=== PATIENT | male | born 1950 | race Hispanic/Latino ===

== ENCOUNTER 2018-08-26 10:08 | Inpatient (IN) | payer MEDICARE, OTHER ==
[2018-08-26 10:47] LABS: Basophils # (Auto) 0.2 K/mm3 (0.0-0.1); Basophils % (Auto) 1.5 % (0.0-1.8); Eosinophils # (Auto) 0.1 K/mm3 (0.0-0.4); Eosinophils % (Auto) 0.7 % (0.0-4.3); Hematocrit 45.1 % (35.5-45.6); Hemoglobin 15.4 gm/dl (11.8-15.2); Lymphocytes # (Auto) 2.3 K/mm3 (1.2-5.4); Lymphocytes % (Auto) 21.9 % (13.4-35.0); Mean Corpuscular HGB Conc 34 % (32-34); Mean Corpuscular Volume 93 fl (84-94); Monocytes # (Auto) 0.6 K/mm3 (0.0-0.8); Monocytes % (Auto) 5.9 % (0.0-7.3); Platelet Count 292 K/mm3 (140-440); Red Blood Count 4.85 M/mm3 (3.65-5.03); Red Cell Distribution Width 13.8 % (13.2-15.2)
[2018-08-26 11:10] LABS: BUN/Creatinine Ratio 18; Blood Urea Nitrogen 14 mg/dL (9-20); Calcium 9.2 mg/dL (8.4-10.2); Hemolysis Index 10
--- NOTE | 2018-08-26 11:17 | Emergency Department Report ---
HPI - General Chief Complaint: Syncope Time Seen by Provider: 08/26/18 10:33 - HPI HPI: 67-year-old male presents to the emergency department from work after he had a syncopal episode just prior to arrival. 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 He did hit his head but denies any laceration. He is currently awake and alert. He had an EKG in triage that shows A-fib which appears to be new onset. He has a pmhx of COPD, not O2 dependent. He is a tobacco smoker but denies illicit drug use. 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 he denies any fever, CP, SOB, lower extremity swelling. The patient says that he had something like this many years ago but never was evaluated for it. He has a primary care physician through the [facility]. He was brought in by a coworker. ED Past Medical Hx - Past Medical History Previous Medical History?: Yes Hx COPD: Yes - Surgical History Past Surgical History?: No - Social History Smoking Status: Current Every Day Smoker Substance Use Type: None - Medications Home Medications: Home Medications Medication Instructions Recorded Confirmed Last Taken Type Propranolol [Inderal] 40 mg PO BID 08/26/18 08/26/18 08/26/18 History amLODIPine [Norvasc] 10 mg PO DAILY 08/26/18 08/26/18 08/26/18 History ED Review of Systems ROS: Stated complaint: FELL AT WORK Other details as noted in HPI Comment: All other systems reviewed and negative Constitutional: denies: chills, fever Eyes: vision change (blurry vision, now resolved). denies: eye pain ENT: denies: ear pain, throat pain Respiratory: denies: cough, shortness of breath Cardiovascular: syncope. denies: chest pain Gastrointestinal: denies: abdominal pain, vomiting Genitourinary: denies: dysuria, frequency Musculoskeletal: denies: back pain, arthralgia Skin: denies: rash, lesions Neurological: headache, other (dizziness) Physical Exam - Physical Exam Vital Signs: Vital Signs 08/26/18 10:24 Temperature 97.9 F Pulse Rate 57 L Respiratory 16 Rate Blood Pressure 115/74 O2 Sat by Pulse 100 Oximetry Physical Exam: GENERAL: The patient is well-developed well-nourished. HENT: Normocephalic. Atraumatic. Patient has moist mucous membranes. EYES: Extraocular motions are intact. Pupils equal reactive to light bilaterally. NECK: Supple. Trachea is midline. CHEST/LUNGS: Clear to auscultation. There is no respiratory distress noted. HEART/CARDIOVASCULAR: Irregular.. There is no tachycardia. There is no murmur. ABDOMEN: Abdomen is soft, nontender. Patient has normal bowel sounds. There is no abdominal distention. SKIN: Skin is warm and dry. NEURO: The patient is awake, alert, and oriented. The patient is cooperative. The patient has no focal neurologic deficits. The patient has normal speech. CN II - XII grossly intact. MUSCULOSKELETAL: There is no tenderness or deformity. There is no evidence of acute injury. ED Course Vital Signs 08/26/18 10:24 Temperature 97.9 F Pulse Rate 57 L Respiratory 16 Rate Blood Pressure 115/74 O2 Sat by Pulse 100 Oximetry ED Medical Decision Making - Lab Data Result diagrams: 08/26/18 10:26 08/26/18 10:26 - EKG Data -: EKG Interpreted by Me - EKG Data When compared to previous EKG there are: previous EKG unavailable Interpretation: other (atrial fibrillation, rate of 101 bpm, normal axis, normal intervals) - Radiology Data Radiology results: report reviewed, image reviewed interpreted by me: Chest x-ray shows some hyperinflation of the lungs. No obvious pneumonia or pleural effusions. No pneumothorax. CTA CHEST WITH CONTRAST INDICATION : Syncope, new onset A-fib. TECHNIQUE: Axial imaging performed through the chest, with contrast bolus timing set to maximize opacification of the pulmonary arteries. Sagittal and coronal reformatted images. 3-plane MIP reformatted images were obtained. All CT scans at this location are performed using CT dose reduction for ALARA by means of automated exposure control. 100 mL of intravenous contrast administered. COMPARISON: None FINDINGS: Bolus: Contrast bolus timing is adequate. PTE: No filling defect is present to suggest PTE. Mediastinum: Heart and great vessels appear normal. No pathologic mediastinal adenopathy. Lungs: Minimal centrilobular and paraseptal emphysematous changes are identified at the lung apices. No evidence for infiltrate, pleural effusion or pneumothorax. No interstitial lung disease. Upper abdomen: 6 cm cyst at the superior pole of the right kidney. Bones: Intact. Mild discogenic disease throughout the lower thoracic spine is noted. IMPRESSION: Negative for PTE. Clear lungs. Minimal emphysematous changes. CT head without contrast Coronal history: Syncope, trauma FINDINGS: No previous exams available for comparison. There appears be mild cerebral white matter disease most consistent with age-appropriate microvascular angiopathy. There is mild cerebral atrophy. The ventricular system is correspondingly appropriate in size and configuration. There is no clear CT evidence of acute intracranial hemorrhage or significant mass effect. The visualized paranasal sinuses are clear. All CT scans at this location are performed using the CT dose reduction for Last Size by means of automated exposure control. IMPRESSION: There is no CT evidence of acute intracranial process. - Medical Decision Making This patient presents to the emergency department after having a syncopal episode at work. Through triage, the patient was found to be in atrial fibrillation which is new onset. A CT scan of the head did not show any bleed, shift, mass, ischemia, or any other acute process. CT angiography of the chest also did not show any pulmonary embolism, dissection, aneurysm, or any other acute process. Patient's labs were mostly unremarkable. He was placed on a heparin drip and will be hospital for further evaluation and treatment. Patient was accepted for admission by the hospitalist, Dr. Lyon. - Differential Diagnosis PE, CVA, TIA, hyperthyroidism Critical Care Time: Yes Critical care time in (mins) excluding proc time.: 35 Critical care attestation.: If time is entered above; I have spent that time in minutes in the direct care of this critically ill patient, excluding procedure time. Critical care time was spent on this patient and during his initial evaluation, multiple re- evaluations, ordering and interpretation of labs and imaging, ordering of the heparin bolus and drip. Critical Care Time: 35 minutes ED Disposition Clinical Impression: New onset atrial fibrillation, Syncope and collapse COPD (chronic obstructive pulmonary disease) Qualifiers: COPD type: chronic bronchitis Chronic bronchitis type: simple Qualified Code(s): J41.0 - Simple chronic bronchitis Disposition: OP ADMIT IP TO THIS HOSP Is pt being admited?: Yes Condition: Fair Time of Disposition: 18:44
--- NOTE | 2018-08-26 12:25 | XRay Report ---
CHEST 2 VIEWS INDICATION: Syncopal episode at work today, loss of consciousness. COMPARISON: None FINDINGS: Support devices: None. Heart: Within normal limits. Lungs/pleura: No acute air space or interstitial disease. The lungs are hyperinflated suggesting und erlying emphysematous changes. No pleural effusion or pneumothorax. Pulmonary vessels are within norm al limits. Additional findings: None. IMPRESSION: No acute cardiopulmonary process. Mild COPD. Signer Name: Jesus Merchant Jr, MD Signed: 08/26/2018 12:21 PM Workstation Name: [id number]
[2018-08-26] MEDS ORDERED: NACL 0.9% 1000 ML 1,000 ML IV ONE (12:56)
--- NOTE | 2018-08-26 13:35 | Cat Scan Report ---
CTA CHEST WITH CONTRAST INDICATION : Syncope, new onset A-fib. TECHNIQUE: Axial imaging performed through the chest, with contrast bolus timing set to maximize opa cification of the pulmonary arteries. Sagittal and coronal reformatted images. 3-plane MIP reformatte d images were obtained. All CT scans at this location are performed using CT dose reduction for ALAR A by means of automated exposure control. 100 mL of intravenous contrast administered. COMPARISON: None FINDINGS: Bolus: Contrast bolus timing is adequate. PTE: No filling defect is present to suggest PTE. Mediastinum: Heart and great vessels appear normal. No pathologic mediastinal adenopathy. Lungs: Minimal centrilobular and paraseptal emphysematous changes are identified at the lung apices. No evidence for infiltrate, pleural effusion or pneumothorax. No interstitial lung disease. Upper abdomen: 6 cm cyst at the superior pole of the right kidney. Bones: Intact. Mild discogenic disease throughout the lower thoracic spine is noted. IMPRESSION: Negative for PTE. Clear lungs. Minimal emphysematous changes. Signer Name: Jesus Merchant Jr, MD Signed: 08/26/2018 1:30 PM Workstation Name: [id number]
--- NOTE | 2018-08-26 13:36 | Cat Scan Report ---
CT head without contrast Coronal history: Syncope, trauma FINDINGS: No previous exams available for comparison. There appears be mild cerebral white matter dis ease most consistent with age-appropriate microvascular angiopathy. There is mild cerebral atrophy. T he ventricular system is correspondingly appropriate in size and configuration. There is no clear CT evidence of acute intracranial hemorrhage or significant mass effect. The visualized paranasal sinuse s are clear. All CT scans at this location are performed using the CT dose reduction for ALARA by [facility] yoko of automated exposure control. IMPRESSION: There is no CT evidence of acute intracranial process. Signer Name: Madi Fleming MD Signed: 08/26/2018 1:32 PM Workstation Name: [id number]
[2018-08-26] MEDS ORDERED: HEPARIN 10,000 UNITS/10 ML IV ONE (13:37)
--- NOTE | 2018-08-26 13:42 | History and Physical Report ---
History of Present Illness Chief complaint: I got dizzy and passed out History of present illness: 67 YO Male with Nicotine Dependence, COPD presents to ED for evaluation. Pt states that he was in his usual state of health and was working today. 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 Pt transported to [facility] via private vehicle. Pt seen and evaluated in ED. Pt acknowledges shortness of breath, decreased exercise tolerance, dypsnea on exertion, dypsnea at rest. Pt found to have new onset Atrial Fib, as well as symptoms consistent with Diastolic CHF. 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 Pt denies fever, chills, CP, lower extremity swelling, individual/family history of DVT/PE/Bleeding/Blood Clotting Disorder. No prior admission for review. All listed mediation reconc iled at time of admission. CHADS 2 Vasc Score:1. Cardiology consulted in ED. Past History Past Medical History: COPD Past Surgical History: No surgical history, Other (reviewed) Social history: , lives with family, smoking Family history: no significant family history (reviewed) Medications and Allergies Allergies Allergy/AdvReac Type Severity Reaction Status Date / Time No Known Allergies Allergy Verified 08/26/18 10:16 Home Medications Medication Instructions Recorded Confirmed Last Taken Type Propranolol [Inderal] 40 mg PO BID 08/26/18 08/26/18 08/26/18 History amLODIPine [Norvasc] 10 mg PO DAILY 08/26/18 08/26/18 08/26/18 History Active Meds: Active Medications Sodium Chloride (Nacl 0.9% 1000 Ml) 1,000 mls @ 999 mls/hr IV BOLUS ONE Stop: 08/26/18 13:56 Last Admin: 08/26/18 13:19 Dose: 999 mls/hr Documented by: Heparin Sodium/Sodium Chloride (Heparin/ 0.45% Nacl-25,000 Unit/500 Ml) 25,000 unit in 500 mls @ 21.773 mls/hr IV TITR EDSON; Protocol Review of Systems Constitutional: no weight loss, no weight gain, no fever, no chills Ears, nose, mouth and throat: no ear pain, no ear discharge, no nose pain, no nasal congestion Cardiovascular: palpitations, syncope, shortness of breath, dyspnea on exertion, decreased exercise tolerance, no chest pain, no orthopnea, no edema, no lightheadedness Respiratory: no cough, no cough with sputum, no excessive sputum Gastrointestinal: no nausea, no vomiting, no diarrhea, no constipation Genitourinary Male: no hematuria, no flank pain, no discharge, no urinary frequency, no urinary hesitancy Rectal: no pain, no incontinence, no bleeding Musculoskeletal: no neck stiffness, no neck pain, no arm numbness/tingling, no shooting leg pain, no leg numbness/tingling Integumentary: no rash, no pruritis, no redness, no sores, no wounds Neurological: no head injury, no transient paralysis, no paralysis, no weakness, no parathesias, no numbness, no tingling Psychiatric: no anxiety, no memory loss, no change in sleep habits, no sleep disturbances, no insomnia, no hypersomnia Endocrine: no cold intolerance, no heat intolerance, no polyphagia, no excessive thirst, no polydipsia, no polyuria, no excessive sweating, no flushing Hematologic/Lymphatic: no easy bruising, no easy bleeding, no lymphadenopathy, no lymphedema Allergic/Immunologic: no urticaria, no allergic rhinitis, no persistent infections, no anaphylaxis Exam - Constitutional Vitals: Temp Pulse Resp BP Pulse Ox 97.9 F 79 17 98/74 86 08/26/18 10:24 08/26/18 12:00 08/26/18 12:00 08/26/18 12:00 08/26/18 12:00 General appearance: Present: no acute distress - EENT Eyes: Present: PERRL ENT: hearing intact, clear oral mucosa - Neck Neck: Present: supple, normal ROM - Respiratory Respiratory effort: normal Respiratory: bilateral: CTA - Cardiovascular Rhythm: irregularly irregular Heart Sounds: Present: S1 & S2. Absent: rub, click - Extremities Extremities: pulses symmetrical, No edema Peripheral Pulses: within normal limits - Abdominal General gastrointestinal: Present: soft, non-tender, non-distended, normal bowel sounds Male genitourinary: Present: normal - Integumentary Integumentary: Present: clear, warm, dry - Musculoskeletal Musculoskeletal: gait normal, strength equal bilaterally - Psychiatric Psychiatric: appropriate mood/affect, intact judgment & insight - Neurologic Neurologic: CNII-XII intact, moves all extremities Results - Labs CBC & Chem 7: 08/26/18 10:26 08/26/18 10:26 Labs: Abnormal lab results 08/26/18 08/26/18 08/26/18 Range/Units 10:26 10:26 10:55 Hgb 15.4 H (11.8-15.2) gm/dl Baso # 0.2 H (0.0-0.1) K/mm3 D-Dimer 277.12 H (0-234) ng/mlDDU Glucose 116 H (75-100) mg/dL Assessment and Plan - Patient Problems (1) Atrial fibrillation with rapid ventricular response Current Visit: Yes Status: Acute Plan to address problem: Admit to telemetry, CHADS 2 Vasc score:1, Aspirin, beta adis therapy, IVF resuscitation, Echo, cardiology consulted, (2) Diastolic CHF Current Visit: Yes Status: Suspected Qualifiers: Heart failure chronicity: acute Qualified Code(s): I50.31 - Acute diastolic (congestive) heart failure Plan to address problem: Admit to telemetry, cardiology consulted in ED, Echo, cardiology consulted, thyroid panel, magnesium level, bnp, (3) Nicotine dependence unspecified, with withdrawal Current Visit: Yes Status: Acute Qualifiers: Nicotine product type: cigarettes Qualified Code(s): F17.213 - Nicotine dependence, cigarettes, with withdrawal Plan to address problem: Smoking cessation counseling, +15 minutes. (4) COPD (chronic obstructive pulmonary disease) Current Visit: Yes Status: Acute Qualifiers: COPD type: chronic bronchitis Chronic bronchitis type: simple Qualified Code(s): J41.0 - Simple chronic bronchitis Plan to address problem: supplemental oxygen, smoking cessation, supportive care. (5) Syncope and collapse Current Visit: Yes Status: Acute Plan to address problem: Echo, carotid doppler, supportive care. (6) DVT prophylaxis Current Visit: Yes Status: Acute Plan to address problem: SCD to BLE while in bed, pt ambulatory
[2018-08-26] MEDS ORDERED: TYLENOL PO PRN (13:51)
[2018-08-26] MEDS ORDERED: SODIUM CHLORIDE FLUSH SYRINGE 10 ML IV PRN (13:51)
[2018-08-26] MEDS ORDERED: PROVENTIL IH PRN (13:51)
[2018-08-26] MEDS ORDERED: ZOFRAN IV PRN (13:51)
[2018-08-26] MEDS ORDERED: HEPARIN/ 0.45% NACL-25,000 UNIT/500 ML 25,000 UNIT/500 ML BAG IV SCH (14:00)
--- NOTE | 2018-08-26 15:00 | Vascular Lab Report ---
BILATERAL CAROTID DOPPLER ULTRASOUND INDICATION : syncope TECHNIQUE: Grayscale and color Doppler imaging performed through the neck. COMPARISON: None FINDINGS: Right: There is mild partially calcified irregular plaque in the right carotid bulb. Peak systolic velocity in the CCA is 74 cm/s with end-diastolic velocity of 22 cm/s. Peak systolic velocity in the proximal ICA is 77 cm/s with end-diastolic velocity of 39 cm/s. ICA to CCA ratio is less than 2. Ther e is antegrade flow in the ECA and the vertebral artery. Left: There is mild partially calcified irregular plaque in the left carotid bulb. Peak systolic [place] in the CCA is 62 cm/s with end-diastolic velocity of 26 cm/s. Peak systolic velocity in the prox imal ICA is 71 cm/s with end-diastolic velocity of 35 cm/s. ICA to CCA ratio is less than 2. There is antegrade flow in the ECA and the vertebral artery. IMPRESSION: No hemodynamically significant stenosis by NASCET criteria. Signer Name: Jesus Merchant Jr, MD Signed: 08/26/2018 2:56 PM Workstation Name: [id number]
[2018-08-26 18:51] LABS: Free T4 (Free Thyroxine) 1.48 ng/dL (0.76-1.46)
[2018-08-26] MEDS: SODIUM CHLORIDE FLUSH SYRINGE 10 ML IV SCH (21:51)
[2018-08-26] MEDS: INDERAL PO SCH (21:51)
[2018-08-27 05:41] LABS: Basophils # (Auto) 0.1 K/mm3 (0.0-0.1); Eosinophils # (Auto) 0.1 K/mm3 (0.0-0.4); Eosinophils % (Auto) 2.2 % (0.0-4.3); Hematocrit 42.1 % (35.5-45.6); Hemoglobin 14.3 gm/dl (11.8-15.2); Lymphocytes # (Auto) 2.3 K/mm3 (1.2-5.4); Mean Corpuscular HGB Conc 34 % (32-34); Mean Corpuscular Volume 93 fl (84-94); Monocytes # (Auto) 0.5 K/mm3 (0.0-0.8); Monocytes % (Auto) 8.5 % (0.0-7.3); Platelet Count 221 K/mm3 (140-440); Red Blood Count 4.53 M/mm3 (3.65-5.03); Red Cell Distribution Width 13.8 % (13.2-15.2)
[2018-08-27 05:59] LABS: Alanine Aminotransferase 13 units/L (7-56); Albumin 3.6 g/dL (3.9-5); BUN/Creatinine Ratio 22; Blood Urea Nitrogen 13 mg/dL (9-20); Calcium 8.7 mg/dL (8.4-10.2); Hemolysis Index 16
[2018-08-27] MEDS ORDERED: ECOTRIN PO SCH (10:00)
--- NOTE | 2018-08-27 11:09 | Consultation ---
History of Present Illness Consult date: 08/27/18 Consult reason: atrial fibrillation, congestive heart failure, syncope History of present illness: This is a 67-year old male with a history of COPD, continued tobacco use and hypertension. Patient was brought to this hospital with syncope found in atrial fibrillation, rate 101. A CT scan of the head reports no acute process. CTA of the chest reports no evidence of pulmonary embolism. TSH is normal. He was placed on a heparin drip and admitted for further evaluation and treatment. Cardiac consultation has been requested. Patient reports dizziness with vision changes just prior to passing out. He denies chest pain, unusual shortness of breath and palpitations. Patient denies prior history of arrhythmias and has not had any prior cardiac workup. Patient has since reverted to a sinus rhythm. Past History Past Medical History: COPD, hypertension Past Surgical History: No surgical history Social history: , lives with family, smoking Family history: no significant family history (reviewed) Medications and Allergies Allergies Allergy/AdvReac Type Severity Reaction Status Date / Time No Known Allergies Allergy Verified 08/26/18 10:16 Home Medications Medication Instructions Recorded Confirmed Last Taken Type Propranolol [Inderal] 40 mg PO BID 08/26/18 08/26/18 08/26/18 History amLODIPine [Norvasc] 10 mg PO DAILY 08/26/18 08/26/18 08/26/18 History Active Meds: Active Medications Acetaminophen (Tylenol) 650 mg PO Q4H PRN PRN Reason: Pain MILD(1-3)/Fever >100.5/JENSEN Albuterol (Proventil) 2.5 mg IH Q4HRT PRN PRN Reason: Shortness Of Breath Amlodipine Besylate (Norvasc) 10 mg PO DAILY [facility] Aspirin (Ecotrin) 325 mg PO QDAY [facility] Ondansetron HCl (Zofran) 4 mg IV Q8H PRN PRN Reason: Nausea And Vomiting Propranolol HCl (Inderal) 40 mg PO BID [facility] Last Admin: 08/26/18 21:51 Dose: 40 mg Documented by: Sodium Chloride (Sodium Chloride Flush Syringe 10 Ml) 10 ml IV BID [facility] Last Admin: 08/26/18 21:51 Dose: 10 ml Documented by: Sodium Chloride (Sodium Chloride Flush Syringe 10 Ml) 10 ml IV PRN PRN PRN Reason: LINE FLUSH Physical Examination Vital Signs Temp Pulse Resp BP Pulse Ox 97.9 F 57 L 16 115/74 100 08/26/18 10:24 08/26/18 10:24 08/26/18 10:24 08/26/18 10:24 08/26/18 10:24 General appearance: no acute distress HEENT: Positive: PERRL Cardiac: Positive: Reg Rate and Rhythm Lungs: Positive: Decreased Breath Sounds, Wheezes Neuro: Positive: Grossly Intact Extremities: Absent: edema Results 08/27/18 05:20 08/27/18 05:20 Cardiac Enzymes 08/27/18 Range/Units 05:20 AST 19 (5-40) units/L CBC 08/27/18 Range/Units 05:20 WBC 6.3 (4.5-11.0) K/mm3 RBC 4.53 (3.65-5.03) M/mm3 Hgb 14.3 (11.8-15.2) gm/dl Hct 42.1 (35.5-45.6) % Plt Count 221 (140-440) K/mm3 Lymph # 2.3 (1.2-5.4) K/mm3 [place] # 0.5 (0.0-0.8) K/mm3 Eos # 0.1 (0.0-0.4) K/mm3 Baso # 0.1 (0.0-0.1) K/mm3 Comprehensive Metabolic Panel 08/26/18 08/27/18 Range/Units 10:26 05:20 Sodium 138 140 (137-145) mmol/L Potassium 4.2 3.8 (3.6-5.0) mmol/L Chloride 102.2 105.8 (98-107) mmol/L Carbon Dioxide 25 23 (22-30) mmol/L BUN 14 13 (9-20) mg/dL Creatinine 0.8 0.6 L (0.8-1.5) mg/dL Glucose 116 H 102 H (75-100) mg/dL Calcium 9.2 8.7 (8.4-10.2) mg/dL AST 19 (5-40) units/L ALT 13 (7-56) units/L Alkaline Phosphatase 58 (35-129) units/L Total Protein 6.2 L (6.3-8.2) g/dL Albumin 3.6 L (3.9-5) g/dL Assessment and Plan - Patient Problems (1) Atrial fibrillation with rapid ventricular response Current Visit: Yes Status: Acute Plan to address problem: Atrial fibrillation spontaneously reverted to sinus rhythm Recommendations: Echocardiogram for LVEF assessment. Diltiazem CD 180mg for suppression of paroxysmal atrial fibrillation. Initiate Eliquis for oral anticoagulation. Pre-discharged stress thallium test.
[2018-08-27] MEDS: NORVASC PO SCH (12:46)
[2018-08-27] MEDS: SODIUM CHLORIDE FLUSH SYRINGE 10 ML IV SCH ×2 (12:47→22:49)
[2018-08-27] MEDS: INDERAL PO SCH ×2 (12:56→22:48)
--- NOTE | 2018-08-27 18:18 | Progress Note ---
Assessment and Plan - Patient Problems (1) Atrial fibrillation with rapid ventricular response Current Visit: Yes Status: Acute Plan to address problem: Patient with new onset atrial fibrillation remains irregular. Echocardiogram pending. Cardiac rhythm irregular. He should start on aspirin beta adis anticoagulation. Appears to be relatively asymptomatic at this particular time. Patient on 2 AV meche blocking agents propranolol and Cardizem. Also started on anticoagulation withelaqius (2) COPD (chronic obstructive pulmonary disease) Current Visit: Yes Status: Acute Qualifiers: COPD type: chronic bronchitis Chronic bronchitis type: simple Qualified Code(s): J41.0 - Simple chronic bronchitis Plan to address problem: Tobacco cessation will continue nebulizers as indicated. Does not appear to require steroids at this time smoking cessation has been discussed in detail. (3) Nicotine dependence unspecified, with withdrawal Current Visit: Yes Status: Acute Qualifiers: Nicotine product type: cigarettes Qualified Code(s): F17.213 - Nicotine dependence, cigarettes, with withdrawal (4) Syncope and collapse Current Visit: Yes Status: Acute Plan to address problem: Secondary to new-onset A. fib. Patient is no longer dizzy or short of breath. Currently hemodynamically stable. Patient had head CT negative exam and chest CT negative and chest x-ray are unremarkable. (5) Diastolic CHF Current Visit: Yes Status: Suspected Qualifiers: Heart failure chronicity: acute Qualified Code(s): I50.31 - Acute diastolic (congestive) heart failure Plan to address problem: Patient will receive stress test this admission echocardiogram and thyroid panel pending. (6) Mild malnutrition Current Visit: Yes Status: Acute History Interval history: Patient 67-year-old with history of COPD and tobacco dependency presented with dizziness syncope shortness of breath found to have new onset A. fib. At present patient denies any chest pain minimal shortness of breath multiple mostly weakness. States he does not require a nicotine patch. Hospitalist Physical - Constitutional Vitals: Temp Pulse Resp BP Pulse Ox 97.9 F 56 L 20 97/64 97 08/27/18 04:10 08/27/18 12:56 08/27/18 04:10 08/27/18 12:56 08/27/18 04:10 General appearance: Present: no acute distress - EENT Eyes: Present: PERRL, EOM intact ENT: hearing intact, clear oral mucosa, dentition normal, no oropharyngeal erythema, no poor dentition, no thrush, no ulcerations, no edentulous - Neck Neck: Present: supple, normal ROM - Respiratory Respiratory: bilateral: CTA - Cardiovascular Rhythm: regularly irregular - Extremities Extremities: no ischemia, pulses intact, pulses symmetrical, No edema, normal temperature, normal color Peripheral Pulses: within normal limits - Abdominal General gastrointestinal: soft, non-tender, non-distended - Integumentary Integumentary: Present: clear, warm, dry - Psychiatric Psychiatric: appropriate mood/affect, intact judgment & insight, memory intact - Neurologic Neurologic: CNII-XII intact, moves all extremities Results - Labs CBC & Chem 7: 08/27/18 05:20 08/27/18 05:20 Labs: Laboratory Last Values WBC 6.3 K/mm3 (4.5-11.0) 08/27/18 05:20 RBC 4.53 M/mm3 (3.65-5.03) 08/27/18 05:20 Hgb 14.3 gm/dl (11.8-15.2) 08/27/18 05:20 Hct 42.1 % (35.5-45.6) 08/27/18 05:20 MCV 93 fl (84-94) 08/27/18 05:20 MCH 32 pg (28-32) 08/27/18 05:20 MCHC 34 % (32-34) 08/27/18 05:20 RDW 13.8 % (13.2-15.2) 08/27/18 05:20 Plt Count 221 K/mm3 (140-440) 08/27/18 05:20 Lymph % (Auto) 37.0 % (13.4-35.0) H 08/27/18 05:20 [place] % (Auto) 8.5 % (0.0-7.3) H 08/27/18 05:20 Eos % (Auto) 2.2 % (0.0-4.3) 08/27/18 05:20 Baso % (Auto) 1.0 % (0.0-1.8) 08/27/18 05:20 Lymph # 2.3 K/mm3 (1.2-5.4) 08/27/18 05:20 [place] # 0.5 K/mm3 (0.0-0.8) 08/27/18 05:20 Eos # 0.1 K/mm3 (0.0-0.4) 08/27/18 05:20 Baso # 0.1 K/mm3 (0.0-0.1) 08/27/18 05:20 Seg Neutrophils % 51.3 % (40.0-70.0) 08/27/18 05:20 Seg Neutrophils # 3.2 K/mm3 (1.8-7.7) 08/27/18 05:20 277.12 ng/mlDDU (0-234) H 08/26/18 10:55 Sodium 140 mmol/L (137-145) 08/27/18 05:20 Potassium 3.8 mmol/L (3.6-5.0) 08/27/18 05:20 Chloride 105.8 mmol/L (98-107) 08/27/18 05:20 Carbon Dioxide 23 mmol/L (22-30) 08/27/18 05:20 15 mmol/L 08/27/18 05:20 BUN 13 mg/dL (9-20) 08/27/18 05:20 0.6 mg/dL (0.8-1.5) L 08/27/18 05:20 Estimated GFR > 60 ml/min 08/27/18 05:20 22 % 08/27/18 05:20 Glucose 102 mg/dL (75-100) H 08/27/18 05:20 Calcium 8.7 mg/dL (8.4-10.2) 08/27/18 05:20 Magnesium 2.10 mg/dL (1.7-2.3) 08/26/18 10:26 0.40 mg/dL (0.1-1.2) 08/27/18 05:20 AST 19 units/L (5-40) 08/27/18 05:20 ALT 13 units/L (7-56) 08/27/18 05:20 58 units/L (35-129) 08/27/18 05:20 < 0.010 ng/mL (0.00-0.029) 08/26/18 10:26 NT-Pro-B Natriuret Pep 359.0 pg/mL (0-900) 08/26/18 10:26 6.2 g/dL (6.3-8.2) L 08/27/18 05:20 3.6 g/dL (3.9-5) L 08/27/18 05:20 1.4 % 08/27/18 05:20 TSH 1.300 mlU/mL (0.270-4.200) 08/26/18 17:07 Free T4 1.48 ng/dL (0.76-1.46) H 08/26/18 17:07 Active Medications - Current Medications Current Medications: Generic Name Dose Route Start Last Admin Trade Name Freq PRN Reason Stop Dose Admin Acetaminophen 650 mg 08/26/18 13:51 Tylenol PO Q4H PRN Pain MILD(1-3)/Fever >100.5/JENSEN Albuterol 2.5 mg 08/26/18 13:51 Proventil IH Q4HRT PRN Shortness Of Breath Amlodipine Besylate 10 mg 08/27/18 10:00 08/27/18 12:46 Norvasc PO Not Given DAILY EDSON Apixaban 5 mg 08/27/18 22:00 Eliquis PO Q12HR EDSON Protocol Aspirin 81 mg 08/28/18 10:00 Baby Aspirin PO QDAY EDSON Diltiazem HCl 180 mg 08/27/18 15:00 Cardizem Cd PO QDAY EDSON Ondansetron HCl 4 mg 08/26/18 13:51 Zofran IV Q8H PRN Nausea And Vomiting Propranolol HCl 40 mg 08/26/18 22:00 08/27/18 12:56 Inderal PO Not Given BID EDSON Sodium Chloride 10 ml 08/26/18 22:00 08/27/18 12:47 Sodium Chloride Flush Syringe 10 Ml IV 10 ml BID EDSON Administration Sodium Chloride 10 ml 08/26/18 13:51 Sodium Chloride Flush Syringe 10 Ml IV PRN PRN LINE FLUSH Nutrition/Malnutrition Assess - Dietary Evaluation Nutrition/Malnutrition Findings: Nutrition Notes Start: 08/27/18 12:10 Freq: Status: Active Protocol: Document 08/27/18 12:10 LP (Rec: 08/27/18 12:11 LP [id number]) Nutrition Notes 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 Pt states wt has been stable and is eating well. Pt has no nutrition concerns at this time. Nutrition Intervention Revisit per MD consult or patient Sign Off request:
[2018-08-27] MEDS: CARDIZEM CD PO SCH (19:19)
[2018-08-27] MEDS: ELIQUIS PO SCH (22:49)
[2018-08-28 06:45] LABS: Hematocrit 40.4 % (35.5-45.6); Hemoglobin 13.9 gm/dl (11.8-15.2)
[2018-08-28] MEDS ORDERED: LEXISCAN IV ONE ×2 (07:44→08:19)
--- NOTE | 2018-08-28 09:22 | Progress Note ---
Assessment and Plan Assessment and plan: New paroxysmal atrial fibrillation. Continue Cardizem and anticoagulation. CTA of the chest reports no evidence of pulmonary embolism. TSH is normal. Cardiology following. Echocardiogram shows well-preserved left ventricular systolic function with ejection fraction 55%. COPD. Continue bronchodilators and nebulizers. Hypertension. Continue antihypertensive medications. Tobacco abuse. Patient has been counseled on smoking cessation. Syncope. Etiology secondary to A. fib. Currently hemodynamically stable. Patient had head CT negative exam and chest CT negative and chest x-ray are unremarkable. History Interval history: No new issues overnight. Hospitalist Physical - Constitutional Vitals: Temp Pulse Resp BP Pulse Ox 98.2 F 60 14 88/51 93 08/28/18 03:48 08/28/18 03:48 08/28/18 03:48 08/28/18 03:48 08/28/18 03:48 General appearance: Present: no acute distress - EENT Eyes: Present: PERRL, EOM intact ENT: hearing intact, clear oral mucosa, dentition normal - Neck Neck: Present: supple, normal ROM - Respiratory Respiratory effort: normal Respiratory: bilateral: CTA - Cardiovascular Rhythm: regular Heart Sounds: Present: S1 & S2. Absent: gallop, rub - Extremities Extremities: no ischemia, No edema, Full ROM - Abdominal General gastrointestinal: soft, non-tender, non-distended, normal bowel sounds - Integumentary Integumentary: Present: clear, warm, dry - Neurologic Neurologic: CNII-XII intact, moves all extremities Results - Labs CBC & Chem 7: 08/28/18 05:46 08/27/18 05:20 Labs: Laboratory Last Values WBC 6.3 K/mm3 (4.5-11.0) 08/27/18 05:20 RBC 4.53 M/mm3 (3.65-5.03) 08/27/18 05:20 Hgb 13.9 gm/dl (11.8-15.2) 08/28/18 05:46 Hct 40.4 % (35.5-45.6) 08/28/18 05:46 MCV 93 fl (84-94) 08/27/18 05:20 MCH 32 pg (28-32) 08/27/18 05:20 MCHC 34 % (32-34) 08/27/18 05:20 RDW 13.8 % (13.2-15.2) 08/27/18 05:20 Plt Count 221 K/mm3 (140-440) 08/28/18 05:46 Lymph % (Auto) 37.0 % (13.4-35.0) H 08/27/18 05:20 [place] % (Auto) 8.5 % (0.0-7.3) H 08/27/18 05:20 Eos % (Auto) 2.2 % (0.0-4.3) 08/27/18 05:20 Baso % (Auto) 1.0 % (0.0-1.8) 08/27/18 05:20 Lymph # 2.3 K/mm3 (1.2-5.4) 08/27/18 05:20 [place] # 0.5 K/mm3 (0.0-0.8) 08/27/18 05:20 Eos # 0.1 K/mm3 (0.0-0.4) 08/27/18 05:20 Baso # 0.1 K/mm3 (0.0-0.1) 08/27/18 05:20 Seg Neutrophils % 51.3 % (40.0-70.0) 08/27/18 05:20 Seg Neutrophils # 3.2 K/mm3 (1.8-7.7) 08/27/18 05:20 277.12 ng/mlDDU (0-234) H 08/26/18 10:55 Sodium 140 mmol/L (137-145) 08/27/18 05:20 Potassium 3.8 mmol/L (3.6-5.0) 08/27/18 05:20 Chloride 105.8 mmol/L (98-107) 08/27/18 05:20 Carbon Dioxide 23 mmol/L (22-30) 08/27/18 05:20 15 mmol/L 08/27/18 05:20 BUN 13 mg/dL (9-20) 08/27/18 05:20 0.6 mg/dL (0.8-1.5) L 08/27/18 05:20 Estimated GFR > 60 ml/min 08/27/18 05:20 22 % 08/27/18 05:20 Glucose 102 mg/dL (75-100) H 08/27/18 05:20 Calcium 8.7 mg/dL (8.4-10.2) 08/27/18 05:20 Magnesium 2.10 mg/dL (1.7-2.3) 08/26/18 10:26 0.40 mg/dL (0.1-1.2) 08/27/18 05:20 AST 19 units/L (5-40) 08/27/18 05:20 ALT 13 units/L (7-56) 08/27/18 05:20 58 units/L (35-129) 08/27/18 05:20 < 0.010 ng/mL (0.00-0.029) 08/28/18 07:27 NT-Pro-B Natriuret Pep 359.0 pg/mL (0-900) 08/26/18 10:26 6.2 g/dL (6.3-8.2) L 08/27/18 05:20 3.6 g/dL (3.9-5) L 08/27/18 05:20 1.4 % 08/27/18 05:20 TSH 1.300 mlU/mL (0.270-4.200) 08/26/18 17:07 Free T4 1.48 ng/dL (0.76-1.46) H 08/26/18 17:07 Active Medications - Current Medications Current Medications: Generic Name Dose Route Start Last Admin Trade Name Freq PRN Reason Stop Dose Admin Acetaminophen 650 mg 08/26/18 13:51 Tylenol PO Q4H PRN Pain MILD(1-3)/Fever >100.5/JENSEN Albuterol 2.5 mg 08/26/18 13:51 Proventil IH Q4HRT PRN Shortness Of Breath Amlodipine Besylate 10 mg 08/27/18 10:00 08/27/18 12:46 Norvasc PO Not Given DAILY EDSON Apixaban 5 mg 08/27/18 22:00 08/27/18 22:49 Eliquis PO 5 mg Q12HR EDSON Administration Protocol Aspirin 81 mg 08/28/18 10:00 Baby Aspirin PO QDAY EDSON Diltiazem HCl 180 mg 08/27/18 15:00 08/27/18 19:19 Cardizem Cd PO 180 mg QDAY EDSON Administration Ondansetron HCl 4 mg 08/26/18 13:51 Zofran IV Q8H PRN Nausea And Vomiting Propranolol HCl 40 mg 08/26/18 22:00 08/27/18 22:48 Inderal PO 40 mg BID EDSON Administration Sodium Chloride 10 ml 08/26/18 22:00 08/27/18 22:49 Sodium Chloride Flush Syringe 10 Ml IV 10 ml BID EDSON Administration Sodium Chloride 10 ml 08/26/18 13:51 Sodium Chloride Flush Syringe 10 Ml IV PRN PRN LINE FLUSH Nutrition/Malnutrition Assess - Dietary Evaluation Nutrition/Malnutrition Findings: Nutrition Notes Start: 08/27/18 12:10 Freq: Status: Active Protocol: Document 08/27/18 12:10 LP (Rec: 08/27/18 12:11 LP [id number]) Nutrition Notes 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 Pt states wt has been stable and is eating well. Pt has no nutrition concerns at this time. Nutrition Intervention Revisit per MD consult or patient Sign Off request:
[2018-08-28] MEDS: ELIQUIS PO SCH ×2 (11:05→21:37)
[2018-08-28] MEDS: BABY ASPIRIN PO SCH (11:05)
[2018-08-28] MEDS: INDERAL PO SCH ×2 (11:06→21:39)
[2018-08-28] MEDS: CARDIZEM CD PO SCH (11:06)
[2018-08-28] MEDS: NORVASC PO SCH (11:07)
[2018-08-28] MEDS: SODIUM CHLORIDE FLUSH SYRINGE 10 ML IV SCH ×2 (11:07→21:37)
--- NOTE | 2018-08-28 12:12 | Progress Note ---
Assessment and Plan - Patient Problems (1) New onset atrial fibrillation Current Visit: Yes Status: Acute Plan to address problem: Atrial fibrillation has resolved, continue medical therapy and oral anticoagulation as previously outlined. Cardiac ischemic workup is completed, stable for cardiac discharge. Recommended outpatient cardiac follow-up in 7 days. Subjective Date of service: 08/28/18 Interval history: Patient underwent an exercise thallium stress test during which he exercised for 9 minutes of a Rajesh protocol, no chest pain, thallium images are normal. Echocardiogram shows normal left ventricular systolic function, ejection fraction 55-60%. The patient remains in a stable sinus rhythm, no further atrial fibrillation. Objective Vital Signs Temp Pulse Resp BP Pulse Ox 08/28/18 09:54 127/81 08/28/18 09:53 122/74 08/28/18 09:52 143/81 08/28/18 09:51 170/91 08/28/18 08:29 107/70 08/28/18 03:48 98.2 F 60 14 88/51 93 08/28/18 03:38 49 L 08/27/18 23:37 98.4 F 60 14 87/51 95 08/27/18 22:48 62 108/63 08/27/18 22:45 18 108/63 08/27/18 22:09 97 08/27/18 19:53 98.3 F 75 16 105/63 97 08/27/18 19:19 87 08/27/18 19:11 72 08/27/18 15:30 98.2 F 18 101/64 08/27/18 15:00 65 16 96 08/27/18 12:56 56 L 97/64 08/27/18 12:46 54 L 08/27/18 12:45 54 L 16 97/64 84 - Physical Examination General: No Apparent Distress HEENT: Positive: PERRL Neck: Positive: neck supple Cardiac: Positive: Reg Rate and Rhythm Lungs: Positive: Decreased Breath Sounds Neuro: Positive: Grossly Intact Abdomen: Positive: Soft Skin: Positive: Clear Extremities: Absent: edema - Labs and Meds CBC 08/28/18 Range/Units 05:46 Hgb 13.9 (11.8-15.2) gm/dl Hct 40.4 (35.5-45.6) % Plt Count 221 (140-440) K/mm3
--- NOTE | 2018-08-28 16:37 | Treadmill Report ---
THALLIUM STRESS TEST LEFT VENTRICLE: Left ventricular chamber size is within normal limits. The perfusion study demonstrates homogeneous uptake of the tracer in all segments, no significant perfusion defects identified. Normal apical thinning is noted. Gated analysis demonstrates normal left ventricular systolic function, ejection fraction greater than 70%. CONCLUSION: Normal myocardial perfusion study. JOB# [id number] CA/NTS
[2018-08-29] MEDS: ELIQUIS PO SCH (09:57)
[2018-08-29] MEDS: BABY ASPIRIN PO SCH (09:57)
[2018-08-29] MEDS: CARDIZEM CD PO SCH (10:24)
[2018-08-29] MEDS: INDERAL PO SCH (10:25)
[2018-08-29] MEDS: NORVASC PO SCH (10:26)
--- NOTE | 2018-08-29 11:07 | Discharge Summary ---
Providers - Providers Date of Admission: 08/26/18 13:51 Date of discharge: 08/29/18 Attending physician: TUAN KLEIN 08/26/18 14:13 Consult to Physician [CONS] Routine Comment: Consulting Provider: LATONYA SALEEM Physician Instructions: Reason For Exam: CHF/New onset A fib Primary care physician: [employer]END[employer] Hospitalization Reason for admission: new onset A. 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 ECG on presentation was atrial fibrillation with mildly increased ventricular rate, and underlying right bundle branch block. With medical therapy, he has since reverted to a stable sinus rhythm. Cardiology initiated long-term oral anticoagulation therapy, and oral Cardizem for paroxysmal atrial fibrillation management. A Thallium stress test was ordered for ischemia assessment. Patient underwent an exercise thallium stress test during which he exercised for 9 minutes of a Rajesh protocol, no chest pain, thallium images were normal. Echocardiogram shows normal left ve ntricular systolic function, ejection fraction 55-60%. Atrial fibrillation resolved. Cardiology Recommended outpatient cardiac follow-up in 7 days. Cardiology and I both expressed to the patient that he should not be driving given his previous episodes of syncope. Patient voiced understanding. I discussed with cardiology as well. Dedicated discharge time 35 minutes. Disposition: -01 TO HOME OR SELFCARE Time spent for discharge: 35 - Discharge Diagnoses (1) Atrial fibrillation with rapid ventricular response Status: Acute (2) COPD (chronic obstructive pulmonary disease) Status: Acute Qualifiers: COPD type: chronic bronchitis Chronic bronchitis type: simple Qualified Code(s): J41.0 - Simple chronic bronchitis (3) New onset atrial fibrillation Status: Acute (4) Syncope and collapse Status: Acute Core Measure Documentation - Palliative Care Palliative Care/ Comfort Measures: Not Applicable - Core Measures Any of the following diagnoses?: none Exam - Constitutional Vitals: Temp Pulse Resp BP Pulse Ox 97.9 F 66 16 107/70 95 08/29/18 07:56 08/29/18 10:26 08/29/18 10:00 08/29/18 10:26 08/29/18 10:00 General appearance: Present: no acute distress, well-nourished - EENT Eyes: Present: PERRL ENT: hearing intact, clear oral mucosa - Neck Neck: Present: supple, normal ROM - Respiratory Respiratory effort: normal Respiratory: bilateral: CTA - Cardiovascular Heart Sounds: Present: S1 & S2. Absent: rub, click - Extremities Extremities: pulses symmetrical, No edema Peripheral Pulses: within normal limits - Abdominal General gastrointestinal: Present: soft, non-tender, non-distended, normal bowel sounds Male genitourinary: Present: normal - Integumentary Integumentary: Present: clear, warm, dry - Musculoskeletal Musculoskeletal: gait normal, strength equal bilaterally - Psychiatric Psychiatric: appropriate mood/affect, intact judgment & insight - Neurologic Neurologic: CNII-XII intact, moves all extremities Plan Activity: no restrictions, no driving until cleared by PCP (no driving until cleared by street light servicer) Weight Bearing Status: Full Weight Bearing Diet: low fat, low cholesterol, low salt Follow up with: PRIMARY CAREMD [Primary Care Provider] - 7 Days LATONYA SALEEM MD [Staff Physician] - 7 Days Prescriptions: Aspirin [Aspirin BABY CHEW TAB] 81 mg PO QDAY #30 tab.chew Apixaban [Eliquis] 5 mg PO Q12HR #60 tablet Propranolol [Inderal] 40 mg PO BID #60 tablet amLODIPine [Norvasc] 10 mg PO DAILY #30 tablet
--- NOTE | 2018-08-29 11:09 | Progress Note ---
Assessment and Plan Paroxysmal atrial fibrillation. Now back in SR. [id number] VASc = 2 Normal LVEF by echo and normal perfusion by MPI Syncope Htn Recommend: Continue propranalol, norvasc, and eliquis Stop Cardizem Advised patient to not drive for now Outpatient Event monitor and f/u with me (EP service [facility]) Subjective Date of service: 08/29/18 Interval history: No acute events. Objective Vital Signs Temp Pulse Pulse Pulse Pulse Pulse Resp 08/29/18 10:26 66 08/29/18 10:25 66 08/29/18 10:24 66 08/29/18 10:00 66 62 62 16 08/29/18 07:56 97.9 F 66 16 08/29/18 05:00 59 L 08/29/18 04:52 97.9 F 08/29/18 04:51 62 20 08/28/18 23:36 97.7 F 60 20 08/28/18 23:33 65 08/28/18 21:57 68 08/28/18 21:39 66 08/28/18 21:00 57 L 08/28/18 19:59 80 20 08/28/18 13:00 79 Resp BP BP Pulse Ox 08/29/18 10:26 107/70 08/29/18 10:25 107/70 08/29/18 10:24 107/70 08/29/18 10:00 95 08/29/18 07:56 107/70 95 08/29/18 05:00 08/29/18 04:52 08/29/18 04:51 108/66 94 08/28/18 23:36 93/62 95 08/28/18 23:33 84/61 95 08/28/18 21:57 20 95 08/28/18 21:39 106/69 08/28/18 21:00 08/28/18 19:59 106/69 97 08/28/18 13:00 - Physical Examination General: No Apparent Distress HEENT: Positive: PERRL Neck: Positive: neck supple Cardiac: Positive: Reg Rate and Rhythm Lungs: Positive: clear to auscultation Neuro: Positive: Grossly Intact Abdomen: Positive: Soft, Active Bowel Sounds Skin: Positive: Clear Extremities: Absent: edema
[2018-08-29 14:08] VITALS: BP 135/82
== END 2018-08-29 16:45 | disposition home or self-care (01) | DRG 291 ==
LOC: ED 10:08 → 4A 13:51
PROVIDERS: ADMIT Internal Medicine; ATTEND Hospitalist
DX: I11.0 Hypertensive heart disease with heart failure (principal); I50.31 Acute diastolic (congestive) heart failure; F17.213 Nicotine dependence, cigarettes, with withdrawal; E44.1 Mild protein-calorie malnutrition; Z68.1 Body mass index [BMI] 19.9 or less, adult; I48.0 Paroxysmal atrial fibrillation; J41.0 Simple chronic bronchitis; Z71.6 Tobacco abuse counseling
CPT/HCPCS: 36415; 70450; 71046; 71275; 78452; 80048; 80053; 83735; 83880; 84439; 84443; 84484; 85014; 85018; 85025; 85049; 85379; 93005; 93010; 93017; 93306; 93880; 96374; 99291; 99406; G0378; A9502; J1644; J2785; J7030; Q9967